=== PATIENT | female | born 1990 | race American Indian/Alaskan Native ===

== ENCOUNTER 2017-08-05 20:20 | Emergency (ER) | payer MEDICAID ==
[2017-08-05 20:45] VITALS: BP 119/70
[2017-08-05] MEDS ORDERED: PROVENTIL IH ONE (20:46)
--- NOTE | 2017-08-05 22:03 | XRay Report ---
FINAL REPORT PROCEDURE: XR CHEST ROUTINE 2V TECHNIQUE: PA and lateral chest radiographs were obtained. CPT 62307 HISTORY: cough and wheezing COMPARISON: No prior studies are available for comparison. FINDINGS: Heart: Normal. Mediastinum/Vessels: Normal. Lungs/Pleural space: Normal. Bony thorax: No acute osseous abnormality. Other: IMPRESSION: Normal examination.
== END 2017-08-05 23:23 | disposition left against medical advice (07) ==
LOC: ED 20:20
DX: R07.89 Other chest pain (principal); Z53.21 Procedure and treatment not carried out due to patient leaving prior to being seen by health care provider
CPT/HCPCS: 71046

== ENCOUNTER 2018-11-18 00:17 | Emergency (ER) | payer OTHER ==
[2018-11-18] MEDS ORDERED: TORADOL IM ONE (01:13)
[2018-11-18] MEDS ORDERED: FIORICET PO ONE (01:13)
[2018-11-18] MEDS ORDERED: BENADRYL PO ONE (01:13)
[2018-11-18] MEDS ORDERED: ZOFRAN ODT PO ONE (01:13)
--- NOTE | 2018-11-18 03:12 | Emergency Department Report ---
ED Headache HPI - General Chief Complaint: Headache Stated Complaint: HEADACHES X 3DAYS GETTING WORSE Time Seen by Provider: 11/18/18 01:00 Source: patient Exam Limitations: no limitations - History of Present Illness Initial Comments: Patient is a 28-year-old -Citizen Of The [place] female with no past medical history presents to the ED with complaint of acute onset persistent severe frontal sinus pressure and headache with nasal and sinus congestion and pressure and nausea and vomiting for the last 3 days. Patient states that she has been taking [id number] medications with no relief. Patient denies dizziness, change in vision, lightheadedness, syncope, chest pain, shortness of breath, neck pain, fever, chills, sore throat, abdominal pain or palpitations. Timing/Duration: constant, waxing and waning, other (3 days) Quality: severe, constant, sharp, throbbing Head Injury Location: frontal, temporal Recent Head Trauma: no recent headache/trauma Associated Symptoms: denies symptoms, nausea/vomiting, sinus infection. denies: confusion, fatigue, facial pain, fever/chills, flushing, loss of consciousness, nasal congestion, nasal drainage, numbness in legs/feet, seizures, stiff neck Allergies/Adverse Reactions: Allergies No Known Allergies Allergy (Verified 01/13/13 21:53) Home Medications: Ambulatory Orders Pnv with Ca,No.72/Iron/FA [ Plus Tablet] 1 tab PO DAILY 01/13/13 Docusate Sodium [Colace] 100 mg PO BID PRN #60 capsule 01/14/13 Ferrous Sulfate [Feosol 325 MG tab] 325 mg PO BID #60 tablet 01/14/13 Ibuprofen [Motrin] 800 mg PO TID PRN #60 tablet 01/14/13 oxyCODONE /ACETAMINOPHEN [Percocet 5/325 mg] 1 tab PO Q4HR PRN #45 tablet 01/14/13 Ferrous Sulfate [Feosol 325 MG tab] 325 mg PO BID #60 tablet 06/09/16 Ibuprofen [Motrin] 600 mg PO Q8H PRN #30 tablet 06/09/16 oxyCODONE /ACETAMINOPHEN [Percocet 5/325] 1 tab PO Q6HR PRN #30 tablet 06/09/16 Amoxicillin [Trimox CAP] 500 mg PO Q8H #30 capsule 11/18/18 Butalb/Acetamin/Caff 50-325-40 [Fioricet 50-325-40] 1 - 2 each PO Q4H PRN #15 tablet 11/18/18 Ketorolac [Toradol] 10 mg PO Q8H PRN #20 tablet 11/18/18 Promethazine [Phenergan] 25 mg PO Q6HR PRN #20 tab 11/18/18 ED Review of Systems ROS: Stated complaint: HEADACHES X 3DAYS GETTING WORSE Other details as noted in HPI Constitutional: denies: chills, fever Eyes: denies: eye pain, eye discharge, vision change ENT: congestion, other (frontal sinus pressure). denies: ear pain, throat pain Respiratory: denies: cough, shortness of breath, wheezing Cardiovascular: denies: chest pain, palpitations Endocrine: no symptoms reported Gastrointestinal: denies: abdominal pain, nausea, diarrhea Genitourinary: denies: urgency, dysuria, discharge Musculoskeletal: denies: back pain, joint swelling, arthralgia Skin: denies: rash, lesions Neurological: denies: headache, weakness, paresthesias Psychiatric: denies: anxiety, depression Hematological/Lymphatic: denies: easy bleeding, easy bruising ED Past Medical Hx - Past Medical History Previous Medical History?: No Hx Hypertension: No Hx Congestive Heart Failure: No Hx Diabetes: No Hx Deep Vein Thrombosis: No Hx Renal Disease: No Hx Sickle Cell Disease: No Hx Seizures: No Hx Asthma: No Hx COPD: No - Surgical History Past Surgical History?: Yes Additional Surgical History: - Social History Smoking Status: Current Every Day Smoker Substance Use Type: None - Medications Home Medications: Home Medications Medication Instructions Recorded Confirmed Last Taken Type Pnv with Ca,No.72/Iron/FA 1 tab PO DAILY 01/13/13 06/08/16 01/13/13 History [ Plus Tablet] Docusate Sodium [Colace] 100 mg PO BID PRN #60 capsule 01/14/13 06/08/16 Unknown Rx Ferrous Sulfate [Feosol 325 MG tab] 325 mg PO BID #60 tablet 01/14/13 06/08/16 Unknown Rx Ibuprofen [Motrin] 800 mg PO TID PRN #60 tablet 01/14/13 06/08/16 Unknown Rx oxyCODONE /ACETAMINOPHEN [Percocet 1 tab PO Q4HR PRN #45 tablet 01/14/13 06/08/16 Unknown Rx 5/325 mg] Ferrous Sulfate [Feosol 325 MG tab] 325 mg PO BID #60 tablet 06/09/16 Unknown Rx Ibuprofen [Motrin] 600 mg PO Q8H PRN #30 tablet 06/09/16 Unknown Rx oxyCODONE /ACETAMINOPHEN [Percocet 1 tab PO Q6HR PRN #30 tablet 06/09/16 Unknown Rx 5/325] Amoxicillin [Trimox CAP] 500 mg PO Q8H #30 capsule 11/18/18 Unknown Rx Butalb/Acetamin/Caff 50-325-40 1 - 2 each PO Q4H PRN #15 tablet 11/18/18 Unknown Rx [Fioricet 50-325-40] Ketorolac [Toradol] 10 mg PO Q8H PRN #20 tablet 11/18/18 Unknown Rx Promethazine [Phenergan] 25 mg PO Q6HR PRN #20 tab 11/18/18 Unknown Rx ED Physical Exam - General Limitations: No Limitations General appearance: alert, in no apparent distress - Head Head exam: Present: atraumatic, normocephalic, normal inspection - Eye Eye exam: Present: normal appearance, PERRL, EOMI. Absent: conjunctival injection, nystagmus, periorbital swelling, periorbital tenderness - ENT ENT exam: Present: normal exam, mucous membranes moist, TM's normal bilaterally, normal external ear exam, other (grossly congested nasal passages; palpable frontal sinus tenderness) - Neck Neck exam: Present: normal inspection, full ROM. Absent: tenderness, lymphadenopathy - Respiratory Respiratory exam: Present: normal lung sounds bilaterally. Absent: respiratory distress, wheezes, rales, rhonchi, chest wall tenderness, accessory muscle use, prolonged expiratory - Cardiovascular Cardiovascular Exam: Present: regular rate, normal rhythm, normal heart sounds. Absent: systolic murmur, diastolic murmur, rubs, gallop - GI/Abdominal GI/Abdominal exam: Present: soft, normal bowel sounds. Absent: tenderness, rebound, hyperactive bowel sounds, hypoactive bowel sounds, organomegaly - Rectal Rectal exam: Present: deferred - Extremities Exam Extremities exam: Present: normal inspection, full ROM, normal capillary refill - Back Exam Back exam: Present: normal inspection, full ROM. Absent: tenderness, CVA tenderness (R), CVA tenderness (L), muscle spasm, paraspinal tenderness - Neurological Exam Neurological exam: Present: alert, oriented X3, CN II-XII intact, normal gait, reflexes normal - Psychiatric Psychiatric exam: Present: normal affect, normal mood - Skin Skin exam: Present: warm, dry, intact, normal color. Absent: rash ED Course Vital Signs 11/18/18 11/18/18 11/18/18 00:26 02:06 02:07 Temperature 99.9 F H Pulse Rate 90 Respiratory 16 20 20 Rate Blood Pressure 96/59 Blood Pressure [Left] O2 Sat by Pulse 100 Oximetry 11/18/18 03:44 Temperature 98 F Pulse Rate 82 Respiratory 16 Rate Blood Pressure Blood Pressure 108/78 [Left] O2 Sat by Pulse 100 Oximetry - Reevaluation(s) Reevaluation #1: 11/18/18 06:19 This is a 28-year-old female who presented to ED with frontal sinus headache with nausea and vomiting. Patient is alert and oriented 3 and is not in distress but in pain. Patient was treated for pain in the ED and on reevaluation, patient's pain is resolved, patient sleeping comfortably in the bed in no acute distress. Patient was discharged home on medications and advised to follow-up with her primary care physician in 7-10 days for reevaluation or return to the ED immediately if symptoms get worse. ED Medical Decision Making - Medical Decision Making This is a 28-year-old female who presented to ED with frontal sinus headache with nausea and vomiting. Patient is alert and oriented 3 and is not in distress but in pain. Patient was treated for pain in the ED and on reevaluation, patient's pain is resolved, patient sleeping comfortably in the bed in no acute distress. Patient was discharged home on medications and advised to follow-up with her primary care physician in 7-10 days for reevaluation or return to the ED immediately if symptoms get wors - Differential Diagnosis sinus headache; acute URI, Migraine headache; nausea and vomiting Critical care attestation.: If time is entered above; I have spent that time in minutes in the direct care of this critically ill patient, excluding procedure time. ED Disposition Clinical Impression: Sinus headache, Nausea and vomiting in adult Acute frontal sinusitis Qualifiers: Recurrence: non-recurrent Qualified Code(s): J01.10 - Acute frontal sinusitis, unspecified Disposition: DC-01 TO HOME OR SELFCARE Is pt being admited?: No Does the pt Need Aspirin: No Condition: Stable Instructions: Sinusitis (ED), Acute Headache (ED) Additional Instructions: Take medications with food, drink plenty of fluids and follow-up with your primary care physician in 7-10 days for reevaluation. Return to the ED immediately if symptoms get worse. Prescriptions: Butalb/Acetamin/Caff 50-325-40 [Fioricet 50-325-40] 1 - 2 each PO Q4H PRN #15 tablet PRN Reason: Headache Promethazine [Phenergan] 25 mg PO Q6HR PRN #20 tab PRN Reason: Nausea Ketorolac [Toradol] 10 mg PO Q8H PRN #20 tablet PRN Reason: Pain Amoxicillin [Trimox CAP] 500 mg PO Q8H #30 capsule Referrals: [facility] [Outside] - 3-5 Days Time of Disposition: 03:17 Print Language: UZBEK
[2018-11-18 03:45] VITALS: BP 108/78
== END 2018-11-18 03:45 | disposition home or self-care (01) ==
LOC: ED 00:17
DX: J01.10 Acute frontal sinusitis, unspecified (principal); R11.2 Nausea with vomiting, unspecified; F17.200 Nicotine dependence, unspecified, uncomplicated; Z79.899 Other long term (current) drug therapy
CPT/HCPCS: 96372; 99282; J1885; Q0162

== ENCOUNTER 2020-04-22 12:29 | Emergency (ER) | payer MEDICAID ==
[2020-04-22 12:52] VITALS: BP 120/69
--- NOTE | 2020-04-22 13:34 | XRay Report ---
CHEST 2 VIEWS INDICATION: shortness of breath. COMPARISON: 07/28/2017 FINDINGS: Support devices: None. Heart: Within normal limits. Lungs/pleura: No acute air space or interstitial disease. No pneumothorax. Additional findings: None. IMPRESSION: No acute findings. Signer Name: Jakob Malcolm Jr, MD Signed: 04/22/2020 1:29 PM Workstation Name: [id number]
--- NOTE | 2020-04-22 13:38 | Emergency Department Report ---
- General Chief Complaint: Upper Respiratory Infection Stated Complaint: COUGH Time Seen by Provider: 04/22/20 13:29 Source: patient Mode of arrival: Ambulatory Limitations: No Limitations - History of Present Illness Initial Comments: Patient is a 29-year-old female presents emergency room complaints of a dry cough for 2 months. She states that she intermittently gets the cough seasonally since she was 17 years old. She states that occasionally she has posttussive emesis after frequent coughing but other nights denies any vomiting. She denies any productive cough. She states that occasionally after frequent coughing she feels short of breath. She denies any nausea, diarrhea, fever, ear pain, rhinorrhea, chest congestion, nasal congestion. She is a current everyday tobacco smoker. She denies any recent travel or sick contacts. She states that she was tested for COVID-19 2 weeks ago and it was negative. No past medical history. No allergies medications. Last menstrual cycle 03/27/2021 and she denies any possibility . - Related Data Home Medications Medication Instructions Recorded Confirmed Last Taken Pnv with Ca,No.72/Iron/FA 1 tab PO DAILY 01/13/13 06/08/16 01/13/13 [ Plus Tablet] Previous Rx's Medication Instructions Recorded Last Taken Type Docusate Sodium [Colace] 100 mg PO BID PRN #60 capsule 01/14/13 Unknown Rx Ferrous Sulfate [Feosol 325 MG tab] 325 mg PO BID #60 tablet 01/14/13 Unknown Rx Ibuprofen [Motrin] 800 mg PO TID PRN #60 tablet 01/14/13 Unknown Rx oxyCODONE /ACETAMINOPHEN [Percocet 1 tab PO Q4HR PRN #45 tablet 01/14/13 Unknown Rx 5/325 mg] Ferrous Sulfate [Feosol 325 MG tab] 325 mg PO BID #60 tablet 06/09/16 Unknown Rx Ibuprofen [Motrin] 600 mg PO Q8H PRN #30 tablet 06/09/16 Unknown Rx oxyCODONE /ACETAMINOPHEN [Percocet 1 tab PO Q6HR PRN #30 tablet 06/09/16 Unknown Rx 5/325] Amoxicillin [Trimox CAP] 500 mg PO Q8H #30 capsule 11/18/18 Unknown Rx Butalb/Acetamin/Caff 50-325-40 1 - 2 each PO Q4H PRN #15 tablet 11/18/18 Unknown Rx [Fioricet 50-325-40] Ketorolac [Toradol] 10 mg PO Q8H PRN #20 tablet 11/18/18 Unknown Rx Promethazine [Phenergan] 25 mg PO Q6HR PRN #20 tab 11/18/18 Unknown Rx Albuterol Sulfate [Proventil Hfa] 6.7 gm IH Q4HR PRN #1 hfa.aer.ad 04/22/20 Unknown Rx Benzonatate [Tessalon Perles] 100 mg PO Q8HR PRN #12 capsule 04/22/20 Unknown Rx Fluticasone [Flonase] 1 spray NS QDAY #1 bottle 04/22/20 Unknown Rx Loratadine [Claritin] 10 mg PO DAILY #30 tablet 04/22/20 Unknown Rx Allergies Allergy/AdvReac Type Severity Reaction Status Date / Time No Known Allergies Allergy Verified 01/13/13 21:53 ED Review of Systems ROS: Stated complaint: COUGH Other details as noted in HPI Comment: All other systems reviewed and negative ED Past Medical Hx - Past Medical History Hx Hypertension: No Hx Congestive Heart Failure: No Hx Diabetes: No Hx Deep Vein Thrombosis: No Hx Renal Disease: No Hx Sickle Cell Disease: No Hx Seizures: No Hx Asthma: No Hx COPD: No - Surgical History Additional Surgical History: - Social History Smoking Status: Current Every Day Smoker - Medications Home Medications: Home Medications Medication Instructions Recorded Confirmed Last Taken Type Pnv with Ca,No.72/Iron/FA 1 tab PO DAILY 01/13/13 06/08/16 01/13/13 History [ Plus Tablet] Docusate Sodium [Colace] 100 mg PO BID PRN #60 capsule 01/14/13 06/08/16 Unknown Rx Ferrous Sulfate [Feosol 325 MG tab] 325 mg PO BID #60 tablet 01/14/13 06/08/16 Unknown Rx Ibuprofen [Motrin] 800 mg PO TID PRN #60 tablet 01/14/13 06/08/16 Unknown Rx oxyCODONE /ACETAMINOPHEN [Percocet 1 tab PO Q4HR PRN #45 tablet 01/14/13 06/08/16 Unknown Rx 5/325 mg] Ferrous Sulfate [Feosol 325 MG tab] 325 mg PO BID #60 tablet 06/09/16 Unknown Rx Ibuprofen [Motrin] 600 mg PO Q8H PRN #30 tablet 06/09/16 Unknown Rx oxyCODONE /ACETAMINOPHEN [Percocet 1 tab PO Q6HR PRN #30 tablet 06/09/16 Unknown Rx 5/325] Amoxicillin [Trimox CAP] 500 mg PO Q8H #30 capsule 11/18/18 Unknown Rx Butalb/Acetamin/Caff 50-325-40 1 - 2 each PO Q4H PRN #15 tablet 11/18/18 Unknown Rx [Fioricet 50-325-40] Ketorolac [Toradol] 10 mg PO Q8H PRN #20 tablet 11/18/18 Unknown Rx Promethazine [Phenergan] 25 mg PO Q6HR PRN #20 tab 11/18/18 Unknown Rx Albuterol Sulfate [Proventil Hfa] 6.7 gm IH Q4HR PRN #1 hfa.aer.ad 04/22/20 Unknown Rx Benzonatate [Tessalon Perles] 100 mg PO Q8HR PRN #12 capsule 04/22/20 Unknown Rx Fluticasone [Flonase] 1 spray NS QDAY #1 bottle 04/22/20 Unknown Rx Loratadine [Claritin] 10 mg PO DAILY #30 tablet 04/22/20 Unknown Rx ED Physical Exam - General Limitations: No Limitations General appearance: alert, in no apparent distress - Head Head exam: Present: atraumatic, normocephalic - Eye Eye exam: Present: normal appearance - ENT ENT exam: Present: normal orophraynx, mucous membranes moist - Respiratory Respiratory exam: Present: normal lung sounds bilaterally. Absent: respiratory distress, wheezes, rales, rhonchi, stridor, chest wall tenderness, accessory muscle use, decreased breath sounds, prolonged expiratory - Cardiovascular Cardiovascular Exam: Present: regular rate, normal rhythm, normal heart sounds. Absent: systolic murmur, diastolic murmur, rubs, gallop - Neurological Exam Neurological exam: Present: alert, oriented X3 - Psychiatric Psychiatric exam: Present: normal affect, normal mood - Skin Skin exam: Present: warm, dry, intact ED Course Vital Signs 04/22/20 12:51 Temperature 98.3 F Pulse Rate 90 Respiratory 20 Rate Blood Pressure 120/69 O2 Sat by Pulse 100 Oximetry ED Medical Decision Making - Radiology Data Radiology results: report reviewed, image reviewed Ordering Physician: GUNNAR BROCK Date of Service: 04/22/20 Procedure(s): XR chest routine 2V Accession Number(s): [id number] cc: GUNNAR BROCK Fluoro Time In Minutes: CHEST 2 VIEWS INDICATION: shortness of breath. COMPARISON: 07/28/2017 FINDINGS: Support devices: None. Heart: Within normal limits. Lungs/pleura: No acute air space or interstitial disease. No pneumothorax. Additional findings: None. IMPRESSION: No acute findings. Signer Name: Jakob Coe Jr, MD Signed: 04/22/2020 1:29 PM Workstation Name: [id number] Transcribed By: TTR Dictated By: JAKOB COE JR, MD Electronically Authenticated By: JAKOB COE JR, MD Signed Date/Time: 04/22/201328 DD/ 28 TD/TT: - Medical Decision Making Patient is a 29-year-old female presents emergency room complaints of a dry cough for 2 months. She states that she intermittently gets the cough seasonally since she was 17 years old. She states that occasionally she has posttussive emesis after frequent coughing but other nights denies any vomiting. She denies any productive cough. She states that occasionally after frequent coughing she feels short of breath. She denies any nausea, diarrhea, fever, ear pain, rhinorrhea, chest congestion, nasal congestion. She is a current everyday tobacco smoker. She denies any recent travel or sick contacts. She states that she was tested for COVID-19 2 weeks ago and it was negative. No past medical history. No allergies medications. Last menstrual cycle 03/27/2021 and she denies any possibility . Vitals are normal. On exam breath sounds are clear bilaterally, no wheezing, no rales, no rhonchi, no respiratory distress, no accessory muscle use, no stridor. Chest x-ray ordered prior to my examination and shows No acute findings. Patient has no clinical signs of bacterial pneumonia or bacterial bronchitis. Symptoms likely allergy related and due to her tobacco use. Patient given prescription for Claritin, Flonase, albuterol inhaler, Tessalon Perles. advised patient Please take medication as prescribed. Increase your water intake. May drink warm tea and eat warm soup broth. Please stop smoking. Follow-up with primary care doctor. Return to emergency room for any new or worsening symptoms. Critical care attestation.: If time is entered above; I have spent that time in minutes in the direct care of this critically ill patient, excluding procedure time. ED Disposition Clinical Impression: Cough, Tobacco abuse Allergies Qualifiers: Encounter type: initial encounter Qualified Code(s): T78.40XA - Allergy, unspecified, initial encounter Disposition: TO HOME OR SELFCARE Is pt being admited?: No Does the pt Need Aspirin: No Condition: Stable Instructions: Health Risks of Smoking, Allergies, Adult, [id number], Steps to Quit Smoking Additional Instructions: Please take medication as prescribed. Increase your water intake. May drink warm tea and eat warm soup broth. Please stop smoking. Follow-up with primary care doctor. Return to emergency room for any new or worsening symptoms. Prescriptions: Loratadine [Claritin] 10 mg PO DAILY #30 tablet Fluticasone [Flonase] 1 spray NS QDAY #1 bottle Albuterol Sulfate [Proventil Hfa] 6.7 gm IH Q4HR PRN #1 hfa.aer.ad PRN Reason: Shortness Of Breath Benzonatate [Tessalon Perles] 100 mg PO Q8HR PRN #12 capsule PRN Reason: cough Referrals: DOREEN INGRAM MD [Staff Physician] - 3-[address] [facility] [Provider Group] - 3-5 Days [facility], [LAB/CONTRACT] - 3-5 Days PR[facility] CAREMD [Primary Care Provider] - 3-5 Days Time of Disposition: 13:46 Print Language: MARSHALLESE
== END 2020-04-22 13:52 | disposition home or self-care (01) ==
LOC: ED 12:29
DX: R05 Cough (principal); F11.10 Opioid abuse, uncomplicated; T78.40XA Allergy, unspecified, initial encounter; F17.200 Nicotine dependence, unspecified, uncomplicated; Z79.2 Long term (current) use of antibiotics; Z79.899 Other long term (current) drug therapy
CPT/HCPCS: 71046; 99283

== ENCOUNTER 2021-09-11 16:30 | Emergency (ER) | payer MEDICAID ==
[2021-09-11 17:40] VITALS: BP 96/65
[2021-09-11 19:16] LABS: Basophils % (Auto) 0.5 % (0.0-1.8); Eosinophils # (Auto) 0.1 K/mm3 (0.0-0.4); Eosinophils % (Auto) 1.6 % (0.0-4.3); Hematocrit 34.9 % (30.3-42.9); Hemoglobin 11.1 gm/dl (10.1-14.3); Lymphocytes # (Auto) 1.7 K/mm3 (1.2-5.4); Lymphocytes % (Auto) 23.8 % (13.4-35.0); Mean Corpuscular HGB Conc 32 % (30-34); Mean Corpuscular Volume 81 fl (79-97); Monocytes # (Auto) 0.6 K/mm3 (0.0-0.8); Platelet Count 214 K/mm3 (140-440); Red Blood Count 4.29 M/mm3 (3.65-5.03); Red Cell Distribution Width 19.9 % (13.2-15.2)
[2021-09-11 21:23] LABS: Bilirubin,Urine NEG (Negative); Blood,Urine NEG (Negative); Color,Urine Yellow (Yellow); Mucus,Urine 3+ /HPF; Protein,Urine <15 mg/dL mg/dL (Negative); Urobilinogen,Urine < 2.0 mg/dL (<2.0)
[2021-09-11 21:57] LABS: Alanine Aminotransferase 11 units/L (7-56); Albumin 4.1 g/dL (3.9-5); Blood Urea Nitrogen 6 mg/dL (7-17); Calcium 9.2 mg/dL (8.4-10.2); Hemolysis Index 2
[2021-09-11 21:58] LABS: BUN/Creatinine Ratio 12
--- NOTE | 2021-09-11 23:16 | Ultrasound Report ---
ULTRASOUND OBSTETRIC INDICATION / CLINICAL INFORMATION: vaginal bleeding, 12 weeks gestation. TECHNIQUE: Transabdominal and Transvaginal. COMPARISON: None available. FINDINGS: GESTATIONAL SAC: Well-defined oval shape and intrauterine in location. YOLK SAC: No significant abnormality. EMBRYO/FETUS: No significant abnormality. - [place]-Rump Length = 5.4 cm = 12 weeks, 0 day(s). - Heart Rate, beats per minute (if present) = 164 ADNEXA: No significant abnormality. FREE FLUID: None. ADDITIONAL FINDINGS: None. IMPRESSION: 1. Single, living intrauterine with estimated sonographic age of 12 weeks, 0 day(s). Signer Name: Andrew Mandel MD Signed: 09/11/2021 11:12 PM Workstation Name: [id number]
--- NOTE | 2021-09-11 23:16 | Ultrasound Report ---
ULTRASOUND OBSTETRIC INDICATION / CLINICAL INFORMATION: vaginal bleeding, 12 weeks gestation. TECHNIQUE: Transabdominal and Transvaginal. COMPARISON: None available. FINDINGS: GESTATIONAL SAC: Well-defined oval shape and intrauterine in location. YOLK SAC: No significant abnormality. EMBRYO/FETUS: No significant abnormality. - [place]-Rump Length = 5.4 cm = 12 weeks, 0 day(s). - Heart Rate, beats per minute (if present) = 164 ADNEXA: No significant abnormality. FREE FLUID: None. ADDITIONAL FINDINGS: None. IMPRESSION: 1. Single, living intrauterine with estimated sonographic age of 12 weeks, 0 day(s). Signer Name: Andrew Mandel MD Signed: 09/11/2021 11:12 PM Workstation Name: [id number]
--- NOTE | 2021-09-11 23:50 | Emergency Department Report ---
ED Female HPI - General Chief complaint: Vaginal Bleeding Stated complaint: VAGINAL BLEEDING/ Source: patient Mode of arrival: Ambulatory Limitations: No Limitations - History of Present Illness Initial comments: Patient is a A0 31-year-old -Malag[place] female with no past medical history and who is approximately 12 weeks gestation and who presents to the ED with complaint of acute onset vaginal spotting for the last 12 hours after having sexual intercourse. Patient states that the spotting has been persistent all day. Patient denies dysuria, urinary frequency and urgency, chest pain or shortness of breath, fever, chills, vaginal discharge, low back pain, nausea and vomiting, diarrhea, abdominal pain or syncope. MD Complaint: vaginal bleeding -: Sudden, hour(s) (12) Location: other (Vaginal) Radiation: non-radiating Severity scale (0 -10): 0 Quality: dull Consistency: intermittent Improves with: none Worsens with: intercourse Are you Now?: Yes (12 years gestation) Associated Symptoms: denies other symptoms, vaginal bleeding. denies: vaginal discharge, abdominal pain, nausea/vomiting, fever/chills, headaches, loss of appetite, dysuria, hematuria, rash, shortness of breath, syncope, weakness - Related Data Sexually active: Yes : 3 Para: 2 A: 0 Home Medications Medication Instructions Recorded Confirmed Last Taken Pnv with Ca,No.72/Iron/FA 1 tab PO DAILY 01/13/13 06/08/16 01/13/13 [ Plus Tablet] Previous Rx's Medication Instructions Recorded Last Taken Type Docusate Sodium [Colace] 100 mg PO BID PRN #60 capsule 01/14/13 Unknown Rx Ferrous Sulfate [Feosol 325 MG tab] 325 mg PO BID #60 tablet 01/14/13 Unknown Rx Ibuprofen [Motrin] 800 mg PO TID PRN #60 tablet 01/14/13 Unknown Rx oxyCODONE /ACETAMINOPHEN [Percocet 1 tab PO Q4HR PRN #45 tablet 01/14/13 Unknown Rx 5/325 mg] Ferrous Sulfate [Feosol 325 MG tab] 325 mg PO BID #60 tablet 06/09/16 Unknown Rx Ibuprofen [Motrin] 600 mg PO Q8H PRN #30 tablet 06/09/16 Unknown Rx oxyCODONE /ACETAMINOPHEN [Percocet 1 tab PO Q6HR PRN #30 tablet 06/09/16 Unknown Rx 5/325] Amoxicillin [Trimox CAP] 500 mg PO Q8H #30 capsule 11/18/18 Unknown Rx Butalb/Acetamin/Caff 50-325-40 1 - 2 each PO Q4H PRN #15 tablet 11/18/18 Unknown Rx [Fioricet 50-325-40] Ketorolac [Toradol] 10 mg PO Q8H PRN #20 tablet 11/18/18 Unknown Rx Promethazine [Phenergan] 25 mg PO Q6HR PRN #20 tab 11/18/18 Unknown Rx Albuterol Sulfate [Proventil Hfa] 6.7 gm IH Q4HR PRN #1 hfa.aer.ad 04/22/20 Unknown Rx Benzonatate [Tessalon Perles] 100 mg PO Q8HR PRN #12 capsule 04/22/20 Unknown Rx Fluticasone [Flonase] 1 spray NS QDAY #1 bottle 04/22/20 Unknown Rx Loratadine [Claritin] 10 mg PO DAILY #30 tablet 04/22/20 Unknown Rx cephALEXin [Keflex] 500 mg PO Q8HR #30 cap 09/11/21 Unknown Rx Allergies Allergy/AdvReac Type Severity Reaction Status Date / Time No Known Allergies Allergy Verified 01/13/13 21:53 ED Review of Systems ROS: Stated complaint: VAGINAL BLEEDING/ Other details as noted in HPI Constitutional: denies: chills, fever Eyes: denies: eye pain, eye discharge, vision change ENT: denies: ear pain, throat pain Respiratory: denies: cough, shortness of breath, wheezing Cardiovascular: denies: chest pain, palpitations Endocrine: no symptoms reported Gastrointestinal: denies: abdominal pain, nausea, diarrhea Genitourinary: abnormal menses (Vaginal bleeding). denies: urgency, dysuria, discharge Musculoskeletal: denies: back pain, joint swelling, arthralgia Skin: denies: rash, lesions Neurological: denies: headache, weakness, paresthesias Psychiatric: denies: anxiety, depression Hematological/Lymphatic: denies: easy bleeding, easy bruising ED Past Medical Hx - Past Medical History Previous Medical History?: No Hx Hypertension: No Hx Congestive Heart Failure: No Hx Diabetes: No Hx Deep Vein Thrombosis: No Hx Renal Disease: No Hx Sickle Cell Disease: No Hx Seizures: No Hx Asthma: No Hx COPD: No - Surgical History Past Surgical History?: Yes Additional Surgical History: - Social History Smoking Status: Current Every Day Smoker - Medications Home Medications: Home Medications Medication Instructions Recorded Confirmed Last Taken Type Pnv with Ca,No.72/Iron/FA 1 tab PO DAILY 01/13/13 06/08/16 01/13/13 History [ Plus Tablet] Docusate Sodium [Colace] 100 mg PO BID PRN #60 capsule 01/14/13 06/08/16 Unknown Rx Ferrous Sulfate [Feosol 325 MG tab] 325 mg PO BID #60 tablet 01/14/13 06/08/16 Unknown Rx Ibuprofen [Motrin] 800 mg PO TID PRN #60 tablet 01/14/13 06/08/16 Unknown Rx oxyCODONE /ACETAMINOPHEN [Percocet 1 tab PO Q4HR PRN #45 tablet 01/14/13 06/08/16 Unknown Rx 5/325 mg] Ferrous Sulfate [Feosol 325 MG tab] 325 mg PO BID #60 tablet 06/09/16 Unknown Rx Ibuprofen [Motrin] 600 mg PO Q8H PRN #30 tablet 06/09/16 Unknown Rx oxyCODONE /ACETAMINOPHEN [Percocet 1 tab PO Q6HR PRN #30 tablet 06/09/16 Unknown Rx 5/325] Amoxicillin [Trimox CAP] 500 mg PO Q8H #30 capsule 11/18/18 Unknown Rx Butalb/Acetamin/Caff 50-325-40 1 - 2 each PO Q4H PRN #15 tablet 11/18/18 Unknown Rx [Fioricet 50-325-40] Ketorolac [Toradol] 10 mg PO Q8H PRN #20 tablet 11/18/18 Unknown Rx Promethazine [Phenergan] 25 mg PO Q6HR PRN #20 tab 11/18/18 Unknown Rx Albuterol Sulfate [Proventil Hfa] 6.7 gm IH Q4HR PRN #1 hfa.aer.ad 04/22/20 Unknown Rx Benzonatate [Tessalon Perles] 100 mg PO Q8HR PRN #12 capsule 04/22/20 Unknown Rx Fluticasone [Flonase] 1 spray NS QDAY #1 bottle 04/22/20 Unknown Rx Loratadine [Claritin] 10 mg PO DAILY #30 tablet 04/22/20 Unknown Rx cephALEXin [Keflex] 500 mg PO Q8HR #30 cap 09/11/21 Unknown Rx ED Physical Exam - General Limitations: No Limitations General appearance: alert, in no apparent distress - Head Head exam: Present: atraumatic, normocephalic, normal inspection - Eye Eye exam: Present: normal appearance, PERRL, EOMI Pupils: Present: normal accommodation - ENT ENT exam: Present: normal exam, normal orophraynx, mucous membranes moist, TM's normal bilaterally, normal external ear exam - Neck Neck exam: Present: normal inspection, full ROM - Respiratory Respiratory exam: Present: normal lung sounds bilaterally. Absent: respiratory distress, wheezes, rales, stridor, chest wall tenderness, accessory muscle use, prolonged expiratory - Cardiovascular Cardiovascular Exam: Present: regular rate, normal rhythm, normal heart sounds. Absent: systolic murmur, diastolic murmur, rubs, gallop - GI/Abdominal GI/Abdominal exam: Present: soft, normal bowel sounds. Absent: tenderness, guarding, rebound, hyperactive bowel sounds, hypoactive bowel sounds - Bi-manual exam: Present: other (Pelvic exam deferred at this time) - Extremities Exam Extremities exam: Present: normal inspection, full ROM, normal capillary refill. Absent: tenderness - Back Exam Back exam: Present: normal inspection, full ROM. Absent: tenderness, CVA tenderness (R), CVA tenderness (L), muscle spasm, paraspinal tenderness, vertebral tenderness - Neurological Exam Neurological exam: Present: alert, oriented X3, CN II-XII intact, normal gait, reflexes normal - Psychiatric Psychiatric exam: Present: normal affect, normal mood - Skin Skin exam: Present: warm, dry, intact, normal color. Absent: rash ED Course Vital Signs 09/11/21 17:39 Temperature 97.8 F Pulse Rate 75 Respiratory 20 Rate Blood Pressure 96/65 [Right] O2 Sat by Pulse 99 Oximetry ED Medical Decision Making - Lab Data Result diagrams: 09/11/21 18:34 09/11/21 18:34 - Radiology Data Radiology results: report reviewed, image reviewed - Medical Decision Making This is a A0 31-year-old -Malag[place] female with no past medical history and who is approximately 12 weeks gestation and who presents to the ED with complaint of acute onset vaginal spotting for the last 12 hours after having sexual intercourse. Patient states that the spotting has been persistent all day. In the ED, patient is alert and oriented x3 and is not in any distress. Urinalysis showed significant urinary tract infection. Other lab test results were nonactionable. Transvaginal ultrasound showed a single live intrauterine of approximately 12 weeks and 0 days with a heart rate of 164 bpm. Patient was discharged home on medications and advised to follow-up with her primary care physician or [employer] [facility] physician in 7 to 10 days for reevaluation - Differential Diagnosis Threatened miscarriage; UTI; ovarian cyst; subchorionic bleed Critical care attestation.: If time is entered above; I have spent that time in minutes in the direct care of this critically ill patient, excluding procedure time. ED Disposition Clinical Impression: Threatened miscarriage, Vaginal bleeding in patient after first trimester, Acute urinary tract infection Disposition: HOME / SELF CARE / HOMELESS Is pt being admited?: No Does the pt Need Aspirin: No Condition: Stable Instructions: Vaginal Bleeding During , First Trimester, Urinary Tract Infection, Adult, [id number], Threatened Miscarriage, [id number], Vaginal Bleeding During , Second Trimester, [id number] Additional Instructions: Lab test results were reviewed and are all nonactionable. The transvaginal ultrasound showed a single live intrauterine of approximately 12 weeks and 0 days with a heart rate of 164 bpm. Therefore maintain a complete pelvic rest with no strenuous or physical or sexual activities, take medication for UTI and follow-up with the [facility] physician in 7 to 10 days for reevaluation. Return to the ED immediately if symptoms get worse. Prescriptions: cephALEXin [Keflex] 500 mg PO Q8HR #30 cap Referrals: MORENA FAITH MD [Staff Physician] - 3-5 Days Time of Disposition: 23:50 Print Language: BULGARIAN
== END 2021-09-11 23:56 | disposition home or self-care (01) ==
LOC: ED 16:30
DX: O20.0 Threatened abortion (principal); O20.8 Other hemorrhage in early pregnancy; N39.0 Urinary tract infection, site not specified; Z3A.12 12 weeks gestation of pregnancy; Z79.899 Other long term (current) drug therapy; F17.200 Nicotine dependence, unspecified, uncomplicated
CPT/HCPCS: 36415; 76801; 76817; 80053; 81001; 84702; 85025; 86900; 86901; 87086; 99284